=== PATIENT | female | born 1945 | race Caucasian/White ===

== ENCOUNTER 2019-01-11 19:50 | Emergency (ER) | payer MEDICARE, BC ==
[~2019-01-11] VITALS: Ht 167.6 cm; Wt 63.6 kg
[~2019-01-11 19:50] MED LIST: MELO-102 PO; OMEP20CA4 PO
--- NOTE | 2019-01-11 20:29 | NUR ---
RELIEVING RN FOR BREAK, DR MENDOZA AT BEDSIDE TO EVAL PT, GAVE VERBAL ORDER ZOFRAN 4MG IV X1
[2019-01-11] MEDS ORDERED: ondansetron/PF 4mg/2ml inj IV ONE (20:30)
[2019-01-11 20:34] LABS: BASOPHILS % (AUTO) 0.4 % (0-1); EOSINOPHILS # (AUTO) 0.1 X10'3 (0-0.9); EOSINOPHILS % (AUTO) 2.8 % (0-6); HEMATOCRIT 34.6 % (35.0-45.0); HEMOGLOBIN 11.8 g/dl (12.0-16.0); MEAN CORPUSCULAR HEMOGLOBIN 32.4 PG (27.0-31.0); MEAN CORPUSCULAR VOLUME 95.4 FL (78-98); MEAN PLATELET VOLUME 7.2 FL (7.4-10.4); MONOCYTES # (AUTO) 0.6 X10'3 (0-0.9); MONOCYTES % (AUTO) 14.9 % (2-12); NEUTROPHILS # (AUTO) 2.3 X10'3 (1.8-7.7); NEUTROPHILS % (AUTO) 55.9 % (42-75); PLATELET COUNT 185 X10'3 (140-440); RED BLOOD COUNT 3.62 X10'6 (4.20-5.60); RED CELL DISTRIBUTION WIDTH 13.4 % (11.5-14.5)
[2019-01-11 20:48] LABS: ALANINE AMINOTRANSFERASE 10 U/L (12-78); ALBUMIN 3.2 G/DL (3.4-5.0); ALKALINE PHOSPHATASE 70 IU/L (46-116); ANION GAP 10 (8-16); ASPARTATE AMINO TRANSFERASE 13 U/L (10-37); BILIRUBIN,TOTAL 0.2 MG/DL (0.1-1.0); BLOOD UREA NITROGEN 12 MG/DL (7-18); BUN/CREATININE RATIO 14.8 (6.6-38.0); CALCIUM 7.8 MG/DL (8.5-10.1); CHLORIDE 101 MMOL/L (99-107); CREATININE 0.81 MG/DL (0.40-0.90); GLUCOSE 89 MG/DL (70-104); PARTIAL THROMBOPLASTIN TIME 26 SECONDS (22-32); SODIUM 133 MMOL/L (135-145); TOTAL CARBON DIOXIDE 22.5 MMOL/L (24-32); TOTAL PROTEIN 6.5 G/DL (6.4-8.2); eGFR 70 ML/MIN
[2019-01-11] MEDS ORDERED: famotidine/PF 10 mg/ml inj IV ONE (20:55)
[2019-01-11] MEDS ORDERED: pantoprazole 40 MG vial IV ONE (20:55)
[2019-01-11] MEDS ORDERED: normal saline 1000ML IV soln IVB ONE (20:55)
[2019-01-11] MEDS ORDERED: LORazepam 2 mg/ml vial IV ONE (20:55)
[2019-01-11] MEDS ORDERED: potassium Cl 20 mEq SR tablet PO STA (22:57)
--- NOTE | 2019-01-11 23:21 | NUR ---
DR MENDOZA UPDATED THE PT NOT TOLERATINIG THE SWALLOW EVAL (APPLE SAUCE AND WATER), PT NOT CHOKING AND ABLE TO SWALLOW BUT STATES THAT "IT MILLER AND IS PAINFUL RIGHT HERE" POINTING TO HER EPIGASTRIC AREA. NORMA ORDERD, WILL DC AND ORDER IV REPLACEMENT. MD TO CONSULT WITH GI FOR POSS RETAINED FB. PT DENIES ANY HISTORY OF SWALLOW DIFFICULTIES. DID HAVE AN EPISODE 3 YRS AGO OF HEARTBURN VS CP AND WAS ADMITTED FOR 3 DAYS AND HAD CARDIAC WORK UP . PT HAS SINCE SEEN DR. CERNA FOR REEVALUATION. AT BEDSIDE.
[2019-01-11] MEDS ORDERED: glucagon, human recombinant 1mg kit IV ONE (23:25)
[2019-01-11] MEDS ORDERED: potassium Cl 10 mEq/100mL bag IV ONE (23:25)
--- NOTE | 2019-01-11 23:37 | NUR ---
dr arvizu talking with pt and and reports that GI is comming in . glucagon ordered
--- NOTE | 2019-01-11 23:57 | NUR ---
POTASSIUM IVPB PAINFUL TO INFUSION SITE ON RIGHT HAND IV. RATE SLOWED FROM 10 /ML HR TO 50 ML HR AND NS TKO RIDER ADDED FOR DILUTION.
--- NOTE | 2019-01-12 00:12 | NUR ---
Pt taken to GI Lab.
[2019-01-12 00:15] VITALS: BP 150/88
[2019-01-12] MEDS ORDERED: LIDOcaine Viscous 15ml cup ONE (00:29)
[2019-01-12] MEDS ORDERED: fentaNYL/PF 50MCG/1 ML 2ML syringe ONE (00:29)
[2019-01-12] MEDS ORDERED: MIDAZolam 5mg/5ml vial ONE (00:29)
[2019-01-12 01:07] VITALS: BP 161/83
--- NOTE | 2019-01-12 01:12 | NUR ---
dr vieyra calling to talk with dr. arvizu
[2019-01-12 01:17] VITALS: BP 146/83
[2019-01-12 01:27] VITALS: BP 154/74
[2019-01-12 01:37] VITALS: BP 121/51
[2019-01-12] MEDS ORDERED: potassium Cl 20 mEq SR tablet PO STA ×2 (01:38→02:05)
--- NOTE | 2019-01-12 01:38 | NUR ---
per dr. arvizu, pt to be discharged once she returns from GI lab. Pt will be given kdur 30 meq orally prior to dc (has already received 10 meq ivpb).
[2019-01-12] MEDS ORDERED: potassium chloride 10mEq ER tablet PO STA (01:40)
[2019-01-13 00:15] VITALS: BP 150/88
== END 2019-01-12 02:27 | disposition home or self-care (01) ==
LOC: ER 19:51
DX: K22.2 Esophageal obstruction (principal); E87.6 Hypokalemia; R07.89 Other chest pain; R11.2 Nausea with vomiting, unspecified; K21.9 Gastro-esophageal reflux disease without esophagitis; F10.99 Alcohol use, unspecified with unspecified alcohol-induced disorder; Z90.710 Acquired absence of both cervix and uterus; Z79.899 Other long term (current) drug therapy; Y90.9 Presence of alcohol in blood, level not specified
CPT/HCPCS: 36415; 43249; 71045; 80053; 84484; 85025; 85610; 85730; 93005; 96374; 96375; 99152; 99153; 99285; C1726; C9113; J1610; J2060; J2250; J2405; J3010; J3480; J3490; J7040; 99283; A4620

== ENCOUNTER 2022-04-19 14:20 | Day surgery (SDC) | payer MEDICARE, BC ==
[2022-04-14 10:38] LABS: BASOPHILS % (AUTO) 0.5 % (0-1); EOSINOPHILS # (AUTO) 0.1 X10'3 (0-0.9); HEMATOCRIT 41.1 % (35.0-45.0); HEMOGLOBIN 13.8 g/dl (12.0-16.0); LYMPHOCYTES # (AUTO) 1.1 X10'3 (1.1-4.8); LYMPHOCYTES % (AUTO) 26.9 % (21-51); MEAN CORPUSCULAR HGB CONC 33.7 g/dL (33.0-36.5); MEAN CORPUSCULAR VOLUME 97.9 FL (78-98); MEAN PLATELET VOLUME 8.1 FL (7.4-10.4); MONOCYTES # (AUTO) 0.6 X10'3 (0-0.9); MONOCYTES % (AUTO) 14.3 % (2-12); NEUTROPHILS # (AUTO) 2.4 X10'3 (1.8-7.7); NEUTROPHILS % (AUTO) 55.3 % (42-75); PLATELET COUNT 248 X10'3 (140-440); RED CELL DISTRIBUTION WIDTH 13.2 % (11.5-14.5); WHITE BLOOD COUNT 4.3 X10'3 (4.5-11.0)
[2022-04-14 10:49] LABS: APTT 26 SECONDS (22-32)
[2022-04-14 10:56] LABS: ALBUMIN 3.4 G/DL (3.4-5.0); ANION GAP 6 (8-16); BLOOD UREA NITROGEN 11 MG/DL (7-18); BUN/CREATININE RATIO 11.3 (6.6-38.0); CALCIUM 8.9 MG/DL (8.5-10.1); CHLORIDE 102 MMOL/L (99-107); CHOL/HDL RATIO 2.8 (0.00-4.99); CHOLESTEROL 229 MG/DL (0-200); CREATININE 0.97 MG/DL (0.40-0.90); GLUCOSE 97 MG/DL (70-104); HDL CHOLESTEROL 81 MG/DL (35-60); LDL CHOLESTEROL 132 MG/DL (50-100); POTASSIUM 4.2 MMOL/L (3.5-5.1); SODIUM 136 MMOL/L (135-145); TOTAL CARBON DIOXIDE 27.8 MMOL/L (24-32); TRIGLYCERIDES 78 MG/DL (20-135); eGFR 56 ML/MIN
[2022-04-19] VITALS (7 sets, daily range): BP systolic 104–163; BP diastolic 44–74
[~2022-04-19] VITALS: Ht 167.6 cm; Wt 66.9 kg
[2022-04-19] MEDS ORDERED: diphenhydrAMINE 25mg capsule PO PRN (14:45)
[2022-04-19] MEDS ORDERED: normal saline 1,000 ML IV SCH (14:45)
[2022-04-19] MEDS ORDERED: LORazepam 0.5 MG tablet PO PRN (14:45)
[2022-04-19] MEDS ORDERED: midazolam 1 mg/ML 2ml injection ONE (15:33)
[2022-04-19] MEDS ORDERED: LIDOcaine 1% (10mg/ml) 2ml vial ONE (15:33)
[2022-04-19] MEDS ORDERED: fentaNYL/PF 50MCG/1 ML 2ML syringe ONE (15:33)
[2022-04-19] MEDS ORDERED: verapamil 2.5 mg/ml inj IV ONE (15:33)
[2022-04-19] MEDS ORDERED: nitroGLYCERIN-Tridil 50MG/D5W 250 ML IV ONE (15:34)
[2022-04-19] MEDS ORDERED: heparin 1,000unit/ml 10ml vial 10 ML ONE (15:34)
[2022-04-19] MEDS ORDERED: iohexol 350MG/ML 100ml bottle IV ONE (15:39)
[2022-04-19] MEDS ORDERED: ASPI81TA52 PO (15:51)
[2022-04-19] MEDS ORDERED: MULT-273 PO (15:51)
[2022-04-19] MEDS ORDERED: CALC-627 PO (15:51)
[2022-04-19] MEDS ORDERED: NITR0.4T51 SL (15:51)
[2022-04-19] MEDS ORDERED: PRIM50TA27 PO ×2 (15:51)
[2022-04-19] MEDS ORDERED: AMLO5TAB16 PO (15:51)
[2022-04-19] MEDS ORDERED: METO-395 PO (15:51)
[2022-04-19] MEDS ORDERED: OMEP20TA23 PO (15:51)
[2022-04-19] MEDS ORDERED: HYDROcodone/acetaminophen 5mg/325mg tablet PO PRN (18:00)
[2022-04-19] MEDS ORDERED: HYDROcodone/acetaminophen 10/325mg tab PO PRN (18:00)
== END 2022-04-19 20:10 | disposition home or self-care (01) ==
LOC: SSTAY O 14:20
PROVIDERS: ATTEND Student in an Organized Health Care Education/Training Program
DX: R94.39 Abnormal result of other cardiovascular function study (principal); E78.5 Hyperlipidemia, unspecified; I10 Essential (primary) hypertension; K21.9 Gastro-esophageal reflux disease without esophagitis; M19.90 Unspecified osteoarthritis, unspecified site; Z88.2 Allergy status to sulfonamides; Z79.899 Other long term (current) drug therapy; Z79.01 Long term (current) use of anticoagulants; Z98.890 Other specified postprocedural states
CPT/HCPCS: 36415; 80048; 80061; 85025; 85610; 85730; 93005; 93458; 99152; C1769; C1894; J1644; J2250; J3010; J3490; J7030; Q0163; Q9967; A6258; A6402